=== PATIENT | female | born 1995 | race Two or more races ===

== ENCOUNTER 2017-03-08 21:13 | Emergency (ER) | payer OTHER ==
[2017-03-08] MEDS ORDERED: GI COCKTAIL 120 ML BOTTLE PO STA (21:30)
[2017-03-08] MEDS ORDERED: LIDOCAINE VISCOUS 2% 15 ML UDC MM STA (21:41)
[2017-03-08] MEDS ORDERED: MAG HYDROX/AL HYDROX/SIMETH 30 ML UDC PO STA (21:41)
[2017-03-08] MEDS ORDERED: FAMOTIDINE 20 MG TABLET PO STA (21:41)
[2017-03-08] MEDS ORDERED: FAMOTIDINE 20 MG TABLET ONE (21:49)
[2017-03-08] MEDS ORDERED: LIDOCAINE VISCOUS 2% 15 ML UDC MM ONE (21:49)
[2017-03-08] MEDS ORDERED: MAG HYDROX/AL HYDROX/SIMETH 30 ML UDC ONE (21:49)
--- NOTE | 2017-03-08 22:00 | XRAY Preliminary Report ---
Exam: XR Chest 2 View PA/LAT IMPRESSION: No focal consolidation. [facility] SITE ID: [id number]
--- NOTE | 2017-03-08 22:02 | XRAY Report ---
EXAM: CHEST RADIOGRAPHY EXAM DATE: 03/08/2017 09:48 PM. CLINICAL HISTORY: Sub sternal chest pain. COMPARISON: None. TECHNIQUE: 2 views. FINDINGS: Lungs/Pleura: No focal opacities evident. No pleural effusion. No pneumothorax. Normal volumes. Mediastinum: Heart and mediastinal contours are unremarkable. Other: None. IMPRESSION: No focal consolidation. [facility] Referring Provider Line: [phone] SITE ID: [id number]
--- NOTE | 2017-03-08 22:06 | ED Physician Documentation ---
PD HPI CHEST PAIN - Stated complaint Stated Complaint: CHEST PAIN X 1 DAYS - Chief complaint Chief Complaint: Cardiac - History obtained from History obtained from: Patient, Family - History of Present Illness Timing - onset: Yesterday Timing - onset during: Rest Timing - details: Gradual onset, Waxing and waning Quality: Pressure, Throbbing Location: Substernal, Epigastric Worsened by: Inspiration, Eating Associated symptoms: No: Shortness of air, Diaphoresis, Nausea, Vomiting, Feeling faint / dizzy, General Weakness Similar symptoms before: Has not had sx before Recently seen: Not recently seen - Additional information Additional information: patient is a 22 year old female with no significant past medical history who is presenting to the emergency department for chest pain. patient states that the pain started yesterday. it is in the epigastric and substernal area. Patient states that it feels like pressure and that something is stuck there. Review of Systems Constitutional: denies: Fever, Chills Eyes: denies: Loss of vision, Decreased vision Ears: denies: Ear pain, Drainage/discharge Nose: denies: Rhinorrhea / runny nose, Epistaxis Throat: denies: Dental pain / toothache, Sore throat Cardiac: reports: Chest pain / pressure. denies: Palpitations, Calf pain Respiratory: denies: Dyspnea, Cough, Wheezing GI: denies: Abdominal Pain, Nausea, Vomiting, Constipation, Diarrhea : denies: Dysuria, Frequency Musculoskeletal: denies: Neck pain, Back pain, Extremity pain Neurologic: denies: Generalized weakness, Focal weakness, Numbness Immunocompromised: denies: Immunocompromised PD PAST MEDICAL HISTORY - Past Medical History Past Medical History: No - Past Surgical History Past Surgical History: No - Present Medications Home Medications: Ambulatory Orders Medication Instructions Recorded Confirmed No Known Home Medications [No 10/15/14 03/08/17 Known Home Medications] - Allergies Allergies/Adverse Reactions: Allergies Allergy/AdvReac Type Severity Reaction Status Date / Time No Known Drug Allergies Allergy Verified 03/08/17 21:20 - Social History Does the pt smoke?: No Smoking Status: Never smoker Does the pt drink ETOH?: No Does the pt have substance abuse?: No - Immunizations Immunizations are current?: Yes - POLST Patient has POLST: No PD ED PE NORMAL - Vitals Vital signs reviewed: Yes - General General: Alert and oriented X 3, No acute distress, Well developed/nourished - HEENT HEENT: Atraumatic, PERRL, Pharynx benign - Neck Neck: Supple, no meningeal sign, No JVD - Cardiac Cardiac: RRR, No murmur - Respiratory Respiratory: No respiratory distress, Clear bilaterally - Abdomen Abdomen: Soft, Non tender, Non distended - Derm Derm: Normal color, No rash - Extremities Extremities: No deformity, No tenderness to palpate, No edema, No calf tenderness / cord - Neuro Neuro: Alert and oriented X 3, No motor deficit, No sensory deficit, Normal speech - Psych Psych: Normal mood, Normal affect Results - Vitals Vitals: Vital Signs - 24 hr 03/08/17 03/08/17 21:16 22:21 Temperature 37 C Heart Rate 84 77 Respiratory 17 16 Rate Blood Pressure 144/79 H 126/58 L O2 Saturation 100 99 Oxygen O2 Source Room air - EKG (time done) 2120 Rate: Rate (enter#) (80) Rhythm: NSR [place]: Normal Intervals: Normal [place] QRS: Normal Other comments: Other comments (intraventricular conduction delay) Compare to prior EKG: Old EKG unavailable - Labs Labs: Laboratory Tests 03/08/17 21:34 Troponin I < 0.04 - Rads (name of study) chest x-ray Radiology: Final report received (no acute disease process) PD MEDICAL DECISION MAKING - ED course Complexity details: reviewed old records, reviewed results, re-evaluated patient , considered differential, d/w patient ED course: Patient was seen and examined at bedside. labs were drawn and ekg was performed. patient was treated with pepcid, maalox and viscous lidocaine. When patient's diagnostics returned they were within normal limits. Patient's heart score and perc score were zero. patient's pain was unlikely cardiac in nature. patient required no further work up and was stable for discharge with outpatient follow up. Departure - Departure Disposition: 01 Home, Self Care Clinical Impression: Atypical chest pain, Dyspepsia Condition: Good Instructions: ED Chest Pain NonCardiac Follow-Up: primary,care provider [Other] - Within 1 week Comments: Your diagnostics today were within normal limits. there was no indication of any cardiac or pulmonary disease. Your symptoms are likely related to the GI track. You should follow up with your doctor tomorrow to schedule a follow up appointment. You should try to eat smaller meals, and refrain from spicey or acidic foods. You may return to the emergency department at any time for new, worsening or uncontrollable symptoms. Forms: Activity restrictions Discharge Date/Time: 03/08/17 22:20
[2017-03-08 22:22] VITALS: BP 126/58
== END 2017-03-08 22:20 | disposition home or self-care (01) ==
LOC: ED 21:13
DX: R07.89 Other chest pain (principal); R10.13 Epigastric pain
CPT/HCPCS: 36415; 71020; 84484; 93005; 93010; 99283; 99284; A9270

== ENCOUNTER 2018-08-15 12:45 | Outpatient (CLI) | payer OTHER ==
--- NOTE | 2018-08-22 08:04 | MRI Report ---
Reason: PAIN IN UNSPECIFIED KNEE Procedure Date: 08/15/2018 Accession Number: [id number] / [id number] Procedure: MRI - Knee RT W/O CPT Code: FULL RESULT: EXAM: RIGHT KNEE MRI WITHOUT CONTRAST EXAM DATE: 08/15/2018 01:29 PM. CLINICAL HISTORY: Right knee pain. COMPARISON: 05/26/2016 right knee MRI. TECHNIQUE: Multiplanar, multisequence T1-weighted and fluid-sensitive sequences of the knee without contrast. Other: None. FINDINGS: Bones: No fractures or subluxations. No marrow edema. No bone lesions. Articular Cartilage: There are full thickness delaminating cartilage fissures at the patella without underlying subchondral marrow edema. This has progressed when compared to the prior examination. The trochlear cartilage is intact. Articular cartilage at the medial and lateral compartments is normal. Medial Meniscus: The medial meniscus is intact. Lateral Meniscus: The lateral meniscus is intact. Cruciate Ligaments: The anterior and posterior cruciate ligaments are intact. Collateral Ligaments: The medial collateral and lateral collateral ligamentous structures are intact. Tendons: The quadriceps, patellar, semimembranosus, and popliteus tendons are unremarkable. Musculature: No edema or fatty atrophy. Other: No effusion. No popliteal cyst. No loose bodies. The medial and lateral retinacula are intact. Mild edema within the superolateral aspect of Hoffa's fat pad. IMPRESSION: 1. 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 No subchondral edema. 2. Mild edema at the superolateral aspect of Hoffa's fat pad suggests a component of fat pad impingement in the setting of patellar tendon-lateral femoral condyle friction syndrome. 3. Intact cruciate and collateral ligaments. Normal menisci. [facility] MUSCULOSKELETAL RADIOLOGY SECTION
== END 2018-08-15 12:46 | disposition home or self-care (01) ==
LOC: DI 12:45
PROVIDERS: ATTEND Family Medicine
DX: M22.41 Chondromalacia patellae, right knee (principal); R60.0 Localized edema